=== PATIENT | female | born 2000 | race Hispanic/Latino ===

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

== ENCOUNTER 2020-02-22 14:42 | Emergency (ER) | payer OTHER, SELFPAY ==
[2020-02-22] MEDS ORDERED: Ibuprofen 400 MG TAB ONE ×2 (15:32→16:08)
[2020-02-23 06:08] LABS: SARS-CoV-2 MS2 Positive; SARS-CoV-2 N Gene Positive; SARS-CoV-2 S Gene Positive; SARS-CoV-2 by NAA DETECTED (NotDetected); SARS-CoV-2 orf1ab Positive
== END 2020-02-22 16:19 | disposition home or self-care (01) ==
LOC: MADERS 14:42
DX: U07.1 COVID-19 (principal)
CPT/HCPCS: 87635; 87804; 99283; U0003

== ENCOUNTER 2020-02-26 20:55 | Emergency (ER) | payer SELFPAY ==
[2020-02-26] MEDS ORDERED: Azithromycin 500 MG VIAL ONE (21:28)
[2020-02-26] MEDS ORDERED: Sodium Chloride 0.9% 250 ML 250 ML ONE (21:28)
[2020-02-26] MEDS ORDERED: Sodium Chloride 0.9% 100 ML ONE (21:28)
[2020-02-26] MEDS ORDERED: Ibuprofen 800 MG TAB ONE (21:28)
[2020-02-26] MEDS ORDERED: Sodium Chloride 0.9% 1,000 ML ONE (21:28)
[2020-02-26] MEDS ORDERED: Dexamethasone 10 MG/ML VIAL ONE (21:28)
[2020-02-26] MEDS ORDERED: cefTRIAXone\\ROCEPHIN 1 GM VIAL ONE (21:29)
--- NOTE | 2020-02-26 21:29 | RAD ---
XR Chest 1 View Portable HISTORY: Fever COMPARISON: None FINDINGS: The heart size normal. There are patchy opacities in the right lower lung. No pneumothorace s or pleural effusions are seen. IMPRESSION: Findings are suspicious for right-sided pneumonia.
[2020-02-26 21:35] LABS: #Monocytes 0.2 thou/uL (0.11-0.59); #Neutrophils 2.7 thou/uL (1.40-6.50); %Basophils 0.4 % (0.0-1.0); %Eosinophils 0.3 % (0.0-10.0); %Lymphocytes 25.8 % (28.0-48.0); %Neutrophils 67.5 % (31.0-61.0); Hemoglobin 13.4 g/dL (12.0-16.0); Mean Corpuscular HGB CONC 32.4 g/dL (32.0-36.0); Mean Corpuscular Hemoglobin 27.5 pg (25.0-35.0); Mean Corpuscular Volume 84.8 fL (78.0-98.0); Mean Platelet Volume 8.2 fL (7.4-10.4); Platelet Count 162 thou/uL (130-400); RBC Distribution Width 10.8 % (11.5-14.5); Red Blood Cell (RBC) Count 4.89 mill/uL (4.00-5.20)
[2020-02-26 21:48] LABS: ALT (SGPT) 45 U/L (8-55); AST (SGOT) 45 U/L (5-34); Albumin 4.1 g/dL (3.5-5.0); Alkaline Phosphatase 90 U/L (40-100); Anion Gap 16 mmol/L (10-20); BUN (Urea Nitrogen) 6 mg/dL (7.0-18.7); Bilirubin, Total 0.5 mg/dL (0.2-1.2); Calc. Creatinine Clearance 0 mL/min (70-130); Calcium 8.6 mg/dL (7.8-10.44); Carbon Dioxide 23 mmol/L (22-29); Chloride 103 mmol/L (98-107); Globulin 3.5 g/dL (2.4-3.5); Glucose 115 mg/dL (70-105); Potassium 3.1 mmol/L (3.5-5.1); Protein, Total 7.6 g/dL (6.0-8.3); Sodium 139 mmol/L (136-145)
== END 2020-02-26 23:31 | disposition home or self-care (01) ==
LOC: MADERS 20:55
DX: U07.1 COVID-19 (principal); J12.82 Pneumonia due to coronavirus disease 2019; E86.0 Dehydration; J80 Acute respiratory distress syndrome
CPT/HCPCS: 71045; 80053; 83605; 85025; 85379; 87040; 94760; 96365; 96375; J0456; J0696; J1100; J3490; J7050

== ENCOUNTER 2020-03-07 10:47 | Outpatient (CLI) | payer SELFPAY ==
--- NOTE | 2020-03-07 11:13 | RAD ---
EXAM: Chest PA and lateral: HISTORY: COVID positive patient. Patient was +2 weeks ago. COMPARISON: 02/26/2020 FINDINGS: Heart: Normal cardiac silhouette Aorta: Unremarkable Pulmonary vessels: Normal Costophrenic angles: Costophrenic angles are clear. Lungs: Scattered interstitial and alveolar opacities predominantly in the right lung. Pneumothorax: No pneumothorax Osseous structures: No osseous abnormalities IMPRESSION: Scattered bilateral interstitial opacities and more focal alveolar opacities in the right lung. Corre late for multi lobar COVID pneumonia.
== END 2020-03-07 10:48 | disposition home or self-care (01) ==
LOC: MADRAD 10:47
PROVIDERS: ATTEND Family Medicine
DX: J12.82 Pneumonia due to coronavirus disease 2019 (principal); R91.8 Other nonspecific abnormal finding of lung field
CPT/HCPCS: 71046

== ENCOUNTER 2020-07-18 14:01 | Emergency (ER) | payer SELFPAY, OTHER ==
[2020-07-18 14:25] LABS: Bilirubin Negative (Negative); Blood, Urine Large (Negative); Glucose, Urine (Dipstick) Negative (Negative); Ketone, Urine Negative (Negative); Leukocyte Large (Negative); Nitrite Positive (Negative); Protein, Urine (Dipstick) 100 mg/dL (Neg-Trace); Urobilinogen 0.2 mg/dL (Less than 2); pH, Urine 5.5 (5.0-9.0)
[2020-07-18 14:35] LABS: Specific Gravity, Urine 1.022 (1.002-1.036)
[2020-07-18 14:36] LABS: Bacteria/HPF 2+ HPF (None Seen); Clarity Cloudy (Clear); RBC/HPF Greater than 50 HPF (0-3); Squamous Epithelial 0-3 HPF (0-3); WBC/HPF Greater Than 50 HPF (0-3)
[2020-07-18 15:04] LABS: Pregnancy Test - Urine (BHCG) Negative (Negative); Pregu Control Background? CLEAR/WHITE (CLR/WHITE); Pregu Control Bar Appear? YES (CONTROL BAR); Specific Gravity 1.022 (1.002-1.036)
== END 2020-07-18 15:22 | disposition home or self-care (01) ==
LOC: MADERS 14:01
DX: N39.0 Urinary tract infection, site not specified (principal)
CPT/HCPCS: 36415; 81003; 81015; 81025; 87077; 87086; 87186; 99283